=== PATIENT | female | born 2000 | race Caucasian/White ===

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

== ENCOUNTER 2019-01-19 20:52 | Emergency (ER) | payer BC, OTHER ==
[2019-01-19] MEDS ORDERED: ONDANSETRON 4 MG/2 ML VIAL IVP ONE (21:17)
[2019-01-19] MEDS ORDERED: NS 1,000 ML IV ONE (21:17)
--- NOTE | 2019-01-19 21:18 | EDPHY ---
General Time Seen by Provider: 01/19/19 21:16 Narrative: CLINICAL IMPRESSION: Nausea, right-sided abdominal pain, flank pain, diarrhea ASSESSMENT/PLAN: Patient is a 18-year-old female with a history of LVH who presents to the emergency department with nausea, diarrhea and right-sided abdominal pain. Patient is afebrile and not toxic-appearing, she is in no acute distress. Her abdomen was soft with tenderness in the mid right abdomen as well as right CVA tenderness, no peritoneal signs or evidence of a surgical abdomen. Her workup was very reassuring, normal laboratories studies including normal urinalysis. Renal and abdominal ultrasounds both unremarkable. No findings to suggest urinary tract infection, pyelonephritis, renal colic or appendicitis. negative, rules out ectopic. She had no pelvic complaints to suggest ovarian torsion, TOA or PID. The patient was given Zofran, Toradol and Dilaudid with improvement of her symptoms. Query viral gastroenteritis with musculoskeletal abdominal pain secondary to cough she has had over the last week. Patient understands the importance of follow-up, conservative return precautions were discussed. DIFFERENTIAL DX: Abdominal pain in a female including but not limited to ovarian cyst, pelvic inflammatory disease, ovarian torsion, urinary tract infection, and appendicitis. ED COURSE: 2154: Case discussed with Dr. Treviño, laboratory studies reviewed and unremarkable. 2229: Patient is well-appearing, resting in bed watching TV. Her abdomen is soft, incubator tender in the right mid quadrant without peritoneal signs. Awaiting ultrasound and urine studies. 225: Case discussed with Dr. Mcdermott. Renal ultrasound with no evidence of hydro nephrosis or calculus. Abdominal ultrasound revealed normal appearing appendix at 7.4 mm, no free fluid in the pelvis. Patient did however have rebound tenderness on ultrasound exam. 230: Patient re-evaluated with Dr. Treviño, she is well-appearing and in no acute distress. Her abdomen is soft with tenderness to palpation in the right mid abdomen, exacerbated with any sort of movement, sit up or lifting her leg. Suspect this is musculoskeletal in nature. Discussed findings with patient and her mother who was on the phone. Workup reassuring, conservative return precautions were discussed. CHIEF COMPLAINT: Nausea, decreased appetite, right mid quadrant abdominal pain HPI: Patient is a 18-year-old female with a history of underlying right bundle branch block and LVH who presents to the emergency department with nausea, decreased appetite, diarrhea and right-sided abdominal pain. Patient reports she woke up this evening around 6:00 p.m. When she started experiencing sharp right mid and lower quadrant pain. She reports the pain has been constant, it does worsen with change in position. She is experiencing some associated right flank pain, feels that she needs to urinate but takes her a while to do so. Denies any dysuria or hematuria. She reports nausea and decreased appetite, denies any vomiting. She has had no chest pain or shortness of breath. She did have 1 episode of loose stool 1 hr prior to arrival, denies melena or hematochezia. Patient endorses recent upper respiratory illness including a runny nose, congestion and cough, started over a week ago and is improving. Last menstrual period was 2 weeks ago and normal. She denies any pelvic pain, vaginal pain, vaginal bleeding or vaginal discharge. PMH: Right bundle branch block, LVH Pertinent Past Surgical History: Denies Family History: Not contributory Social History: Denies alcohol, smoking or illicit drug use. REVIEW OF SYSTEMS: All other systems negative Constitutional: Decreased appetite, no fever or chills. Eyes: No discharge, vision change ENT: No sore throat, congestion, ear pain. Cardiovascular: No chest pain, no palpitations. Respiratory: Cough. Gastrointestinal: Nausea, abdominal pain. Genitourinary: Increased frequency, flank pain. No hematuria or dysuria. Musculoskeletal: No back pain, joint swelling, joint pain, myalgias. Skin: No rashes, color change. Neurological: No headache, dizziness, weakness. PHYSICAL EXAM: General Appearance: Well-appearing, no acute distress and not toxic-appearing, smiling on examination on her phone. HENT: Normocephalic, atraumatic. Bilateral external ears are normal. Bilateral tympanic membranes are normal with pearly cardenas reflex. Nares are clear, mucosa is pink. Oropharynx is clear, uvula is midline. There is no tonsillar enlargement or exudate. The dentition is normal. Eyes: PERRLA, EOMI. Conjunctiva pink, no pallor or injection. Neck: Supple, nontender, no lymphadenopathy, no midline pain, FROM. Respiratory: There are no retractions, lungs are clear to auscultation. Cardiac: Regular rate and rhythm, no murmurs or gallops. Gastrointestinal: Patient's abdomen is soft and nondistended. She is tender in the right mid quadrant without rebound or guarding. Bowel sounds are present. No masses or hernia appreciated. No guarding or focal peritoneal findings. Negative Rovsing 's, negative Nicholas sign. CVA tenderness on the right side. Neurological: Alert and oriented x 3, CN 2-12 grossly intact, normal sensation and strength. Skin: Warm, dry, no rashes, no nodules on palpation. Musculoskeletal: Extremities are symmetrical, full range of motion, no tenderness, deformity, swelling, or erythema. Psychiatric: Mood and affect are normal, there is no agitation. MEDICAL DECISION MAKING: Patient was seen independently. Secondary supervising physician at time of evaluation was Dr. Liao, he did not evaluate this patient. Diagnosis: Nausea, right-sided abdominal pain, right flank pain. Summary: Patient is afebrile, she is in no acute distress and not toxic-appearing. Her abdomen was soft and nondistended, tenderness in the right mid abdomen without peritoneal signs; right CVA tenderness. CBC revealed no significant leukocytosis or shift. Her vital signs were reviewed and there was no evidence of sepsis or serious bacterial illness. BMP revealed no significant metabolic abnormality or evidence of acute kidney injury. Lipase and hepatic panel grossly unremarkable without evidence of acute pancreatitis, acute hepatitis or acute hepatobiliary obstruction. Ultrasound revealed normal appearing kidneys without hydronephrosis or stone. Abdominal ultrasound revealed a normal appearing appendix at 7.4 mm, no free fluid in the pelvis. History and physical examination is most consistent with right mid quadrant pain, query musculoskeletal in nature versus viral gastroenteritis. There were no clinical findings to suggest appendicitis, cholecystitis, kidney stone, pyelonephritis, perforated viscus, diverticulitis, hernia, AAA, mesenteric ischemia, or additional emergent intra-abdominal process. negative, rules out ectopic . She had no pelvic complaints to suggest TOA, PID or ovarian torsion. She was given Zofran, Toradol and Dilaudid with improvement of her symptoms. On repeat examination the patient is well-appearing. Her abdomen was soft, mild tenderness to palpation in the mid right abdomen without evidence of a surgical abdomen. Clinical lab tests: ordered / reviewed. Independent visualization of images, tracing, or specimens: Yes. Decision to obtain medical records or history from someone other than the patient: No Review / Summarize previous medical records: Yes Discussed patient with another provider: Yes, Dr. Liao Patient Progress: Stable, discharge. - Diagnostics Imaging Results: Imaging Impressions Abdomen Ultrasound 01/19/19 21:17 Impression: No direct evidence for appendicitis. Right lower quadrant rebound tenderness is of I determined etiology. Results called to Raven Gamboa at 10:53 PM. Abdomen/Pelvis Ultrasound 01/19/19 21:17 Impression: No evidence for right renal obstruction. No source for right flank pain identified. Results called to Raven Gamboa at 10:52 PM. - History Smoking Status: Never smoked - Objective Vital Signs: Initial Vital Signs Temperature (C) 36.4 C 01/19/19 20:56 Heart Rate 66 01/19/19 20:56 Respiratory Rate 16 01/19/19 20:56 Blood Pressure 159/75 H 01/19/19 20:56 O2 Sat (%) 99 01/19/19 20:56 O2 Delivery Mode Room Air Allergies/Adverse Reactions: No Known Allergies Allergy (Verified 01/19/19 21:00) Home Medications: Medication Instructions Recorded NK [No Known Home Meds] 06/06/18 Laboratory Results: Laboratory Results 01/19/19 21:12 01/19/19 21:12 01/19/19 01/19/19 01/19/19 22:20 21:12 21:12 WBC RBC Hgb Hct MCV MCH MCHC RDW Plt Count MPV Neut % (Auto) Lymph % (Auto) [place] % (Auto) Eos % (Auto) Baso % (Auto) Nucleat RBC Rel Count Absolute Neuts (auto) Absolute Lymphs (auto) Absolute Monos (auto) Absolute Eos (auto) Absolute Basos (auto) Absolute Nucleated RBC Immature Gran % Immature Gran # RBC/WBC/PLT Morphology Platelet Estimate Sodium 136 mEq/L mEq/L (135-145) Potassium 4.1 mEq/L mEq/L (3.5-5.2) Chloride 104 mEq/L mEq/L (97-110) Carbon Dioxide 22 mEq/l mEq/l (22-31) Anion Gap 10 mEq/L mEq/L (6-14) BUN 11 mg/dL mg/dL (7-23) Creatinine 0.7 mg/dL mg/dL (0.6-1.0) Estimated GFR > 60 Glucose 89 mg/dL mg/dL (70-100) Calcium 9.8 mg/dL mg/dL (8.5-10.4) Total Bilirubin 0.5 mg/dL mg/dL (0.1-1.4) Conjugated Bilirubin 0.4 mg/dL mg/dL (0.0-0.5) Unconjugated Bilirubin 0.1 mg/dL mg/dL (0.0-1.1) AST 35 IU/L IU/L (14-46) ALT 37 IU/L IU/L (9-52) Alkaline Phosphatase 92 IU/L IU/L (38-126) Total Protein 7.5 g/dL g/dL (6.3-8.2) Albumin 4.7 g/dL g/dL (3.5-5.0) Beta HCG, Qual NEGATIVE Urine Color YELLOW Urine Appearance CLEAR Urine pH 5.0 (5.0-7.5) Ur Specific [place] 1.025 (1.002-1.030) Urine Protein NEGATIVE (NEGATIVE) Urine Ketones TRACE H (NEGATIVE) Urine Blood NEGATIVE (NEGATIVE) Urine Nitrate NEGATIVE (NEGATIVE) Urine Bilirubin NEGATIVE (NEGATIVE) Urine Urobilinogen NEGATIVE EU EU (0.2-1.0) Ur Leukocyte Esterase NEGATIVE (NEGATIVE) Urine Glucose NEGATIVE (NEGATIVE) 01/19/19 21:12 WBC 10.22 10^3/uL H 10^3/uL (3.80-9.50) RBC 4.73 10^6/uL 10^6/uL (4.18-5.33) Hgb 14.5 g/dL g/dL (12.6-16.3) Hct 43.6 % % (38.0-47.0) MCV 92.2 fL fL (81.5-99.8) MCH 30.7 pg pg (27.9-34.1) MCHC 33.3 g/dL g/dL (32.4-36.7) RDW 12.9 % % (11.5-15.2) Plt Count 287 10^3/uL 10^3/uL (150-400) MPV 10.2 fL fL (8.7-11.7) Neut % (Auto) 47.0 % % (39.3-74.2) Lymph % (Auto) 44.4 % % (15.0-45.0) [place] % (Auto) 6.9 % % (4.5-13.0) Eos % (Auto) 1.2 % % (0.6-7.6) Baso % (Auto) 0.3 % % (0.3-1.7) Nucleat RBC Rel Count 0.0 % % (0.0-0.2) Absolute Neuts (auto) 4.80 10^3/uL 10^3/uL (1.70-6.50) Absolute Lymphs (auto) 4.54 10^3/uL H 10^3/uL (1.00-3.00) Absolute Monos (auto) 0.71 10^3/uL 10^3/uL (0.30-0.80) Absolute Eos (auto) 0.12 10^3/uL 10^3/uL (0.03-0.40) Absolute Basos (auto) 0.03 10^3/uL 10^3/uL (0.02-0.10) Absolute Nucleated RBC 0.00 10^3/uL 10^3/uL (0-0.01) Immature Gran % 0.2 % % (0.0-1.1) Immature Gran # 0.02 10^3/uL 10^3/uL (0.00-0.10) RBC/WBC/PLT Morphology TNP Platelet Estimate TNP Sodium Potassium Chloride Carbon Dioxide Anion Gap BUN Creatinine Estimated GFR Glucose Calcium Total Bilirubin Conjugated Bilirubin Unconjugated Bilirubin AST ALT Alkaline Phosphatase Total Protein Albumin Beta HCG, Qual Urine Color Urine Appearance Urine pH Ur Specific [place] Urine Protein Urine Ketones Urine Blood Urine Nitrate Urine Bilirubin Urine Urobilinogen Ur Leukocyte Esterase Urine Glucose Medications Given: Discontinued Medications Albuterol Sulfate (Proventil Inh Prepack) 1 mdi TAKEHOME EDNOW ONE Stop: 01/19/19 23:31 Last Admin: 01/19/19 23:34 Dose: 1 mdi Hydromorphone HCl (Dilaudid) 0.5 mg IVP PRN PRN PRN Reason: Pain, Severe Stop: 01/29/19 21:27 Last Admin: 01/19/19 22:17 Dose: 0.5 mg Sodium Chloride (Ns) 1,000 mls @ 0 mls/hr IV EDNOW ONE; Wide Open PRN Reason: Protocol Stop: 01/19/19 21:18 Last Admin: 01/19/19 21:25 Dose: 1,000 mls Ketorolac Tromethamine (Toradol) 30 mg IVP EDNOW ONE Stop: 01/19/19 23:20 Last Admin: 01/19/19 23:21 Dose: 30 mg Ondansetron HCl (Zofran) 4 mg IVP EDNOW ONE Stop: 01/19/19 21:18 Last Admin: 01/19/19 21:25 Dose: 4 mg Ondansetron HCl (Zofran Odt 4 Mg Prepack#2) 1 btl TAKEHOME EDNOW ONE Stop: 01/19/19 23:25 Last Admin: 01/19/19 23:34 Dose: 1 btl Departure - Departure Disposition: Home, Routine, Self-Care Clinical Impression: Abdominal pain Qualifiers: Abdominal location: right lower quadrant Qualified Code(s): R10.31 - Right lower quadrant pain Condition: Good Instructions: Albuterol (By breathing), Ondansetron (By mouth), Acute Abdominal Pain (ED) Additional Instructions: DISCHARGE INSTRUCTIONS FROM YOUR PROVIDER Thank you for visiting our emergency department today. Please keep in mind that discharge from the emergency department does not mean that there is nothing wrong - it simply means that we have not identified an emergency condition that requires further evaluation or treatment in the hospital. You should always plan to follow up with primary care for re-evaluation of your condition in the next 2-3 days. Rest, push non-diuretic, non-caffeinated fluids, clear liquid diet, then a BRAT diet (bananas, rice, applesauce, toast), then slowly advance diet to normal. Attempt small frequent meals. Zofran as prescribed as needed for any recurrent nausea and/or vomiting. Schedule a follow-up appointment with your primary care physician in the next 1- 2 days for re-evaluation. Bring a copy of your test results with you to that appointment. Rest, push non-diuretic, non-caffeinated fluids, consume a healthy diet, all to help support your immune system fight infection. Consider running a coolmist humidifier in the bedroom. Consider warm salt water gargles for sore throat. Consider over the counter saline nasal washes ie: Neilmed sinus rinse, [place] or [place]. Consider over the counter Mucinex for congestion and/or cough as directed. For pain control: You may take Tylenol, I recommend 500-1000 mg every 6-8 hours as needed. Take with food and a full glass of water. Stop taking if this is upsetting you stomach. Do not exceed 4000 mg in a 24 hr period. You may also take ibuprofen, recommend 400 mg every 6 hr. Take with food and a full glass of water. Stop taking if this upsets your stomach. Do not exceed 2400 mg in a 24 hr period. Do not take anti-inflammatories for at least 8 hr as he received Toradol in the emergency department. As discussed, in the setting of a viral illness, you may develop a secondary bacterial infection, requiring an antibiotic. Watch for new or changing symptoms ie: new ear pain or drainage, increasing cough, shortness of breath, high fever, or any other concerning symptoms. Schedule a follow-up appointment with your primary care physician in the next 2- 3 days for re-evaluation, sooner for any new concerns. Return for high fever, shaking chills, severe headache, facial redness or swelling, drainage from your ears, difficulty breathing or swallowing, throat tightness, drooling, change in voice, inability to open your mouth normally, severe neck pain, neck stiffness, shortness of breath, wheezing, noisy breathing , coughing up blood, chest pain, vomiting, diarrhea, bloody stools, decreased urine output or other concerns for dehydration, bloody urine, rash, dizziness, weakness, fainting, or for any other new, worsening or worrisome symptoms. Return for increased or unmanageable pain, new site or character of pain, flank pain, groin pain, pelvic pain, development of fever, chills, recurrent vomiting , vomiting blood or coffee grounds, diarrhea, constipation, bloody stools, black tarry stools, burning or pain with urination, bloody urine, inability to urinate, decreased urine output or other signs of dehydration, dizziness, weakness, fainting, difficulty breathing or swallowing, chest pain, or for any other new, worsening or worrisome symptoms. People present with illnesses and injuries in different ways, and it is always possible that we have missed something. Again, thank you for choosing our emergency department. We hope that you feel better. Referrals: Angel Michaels MD [Medical Doctor] - 1 day without fail [facility],. [Clinic] - 1 day without fail
[2019-01-19 21:24] LABS: PLATELET COUNT 287 10^3/uL (150-400)
[2019-01-19] MEDS ORDERED: HYDROmorphONE/DILAUDID 2 MG/ML INJ IVP PRN (21:28)
[2019-01-19] MEDS ORDERED: KETOROLAC 30 MG/1 ML SDV IVP ONE (23:19)
[2019-01-19] MEDS ORDERED: ONDANSETRON 4MG PREPACK#2 BTL TAKEHOME ONE (23:24)
[2019-01-19] MEDS ORDERED: ALBUTEROL INH PREPACK MDI TAKEHOME ONE ×2 (23:29→23:30)
[2019-01-19 23:40] VITALS: BP 131/75
[2019-01-20] MEDS ORDERED: ALBUTEROL 60 PUFFS/8 GM MDI IH SCH
== END 2019-01-19 23:38 | disposition home or self-care (01) ==
DX: R10.31 Right lower quadrant pain (principal); E86.9 Volume depletion, unspecified
CPT/HCPCS: 96374; J1170; J1885; J2405